=== PATIENT | male | born 1985 | race Two or more races ===

== ENCOUNTER 2017-05-11 09:24 | Emergency (ER) | payer SELFPAY ==
[~2017-05-11] VITALS: Ht 180.3 cm; Wt 86.2 kg
[2017-05-11 10:23] VITALS: BP 151/96
[2017-05-11 10:28] LABS: Basophils # (auto) 0 uL; Basophils % (auto) 0.4 % (0.0-2.0); CONDITION Y; Eosinophils # (auto) 0 uL; Eosinophils % (auto) 0.1 % (0.0-7.0); Hematocrit 45.1 % (41.0-53.0); Hemoglobin 15.6 g/dL (13.5-17.5); Lymphocytes # (auto) 1.4 uL; Lymphocytes % (auto) 14.9 % (10.0-50.0); Mean Corpuscular Hemoglobin 31.6 pg (28.0-32.0); Mean Corpuscular Hgb Conc. 34.5 g/dL (32.0-36.0); Mean Corpuscular Volume 91.6 fL (80.0-100.0); Mean Platelet Volume 7.9 fL (7.4-10.4); Monocytes # (auto) 0.9 uL; Monocytes % (auto) 9.4 % (0.0-12.0); Neutrophils # (auto) 7.2 uL; Neutrophils % (auto) 75.2 % (37.0-80.0); Platelet Count (auto) 273 10^3/uL (140-450); Red Cell Distribution Width 13.1 % (11.6-16.0); White Blood Cell 9.6 10^3/uL (4.4-10.8)
[2017-05-11 10:45] LABS: Albumin 3.9 g/dL (3.4-5.0); Anion Gap 8 (5-15); Aspartate Aminotransferase 24 U/L (15-37); Blood Urea Nitrogen 12 mg/dL (7-18); Calcium 8.9 mg/dL (8.5-10.1); Carbon Dioxide 25 mmol/L (21-32); Chloride 106 mmol/L (98-107); GFR African American 122 mL/min; GFR Non-African American 101 mL/min; Glucose 96 mg/dL (74-106); Potassium 3.7 mmol/L (3.5-5.1); Sodium 139 mmol/L (136-145)
[2017-05-11 10:50] LABS: Alkaline Phosphatase 81 U/L (45-117); Bilirubin, Total 0.6 mg/dL (0.2-1.0); Total Protein 8.2 g/dL (6.4-8.2)
[2017-05-12] MEDS ORDERED: fentaNYL CITRATE 100 MCG/2 ML VL ONE (07:45)
[2017-05-12] MEDS ORDERED: PHENYLEPHRINE HCL 10 MG/ML VL ONE (07:59)
[2017-05-12] MEDS ORDERED: ceFAZolin 1GM VL ONE (08:00)
[2017-05-12] MEDS ORDERED: OXYTOCIN 10 UNIT/ML 10ML VIAL ONE (08:04)
[2017-05-12] MEDS ORDERED: MIDAZOLAM HCL 1MG/1ML-2 ML VIAL ONE (08:05)
[2017-05-12] MEDS ORDERED: DEXAMETHASONE SOD PHOS 10MG/1ML VIAL INJ ONE (08:15)
[2017-05-12] MEDS ORDERED: ONDANSETRON HCL 4 MG/2 ML VIAL ONE (08:15)
[2017-05-12] MEDS ORDERED: METOCLOPRAMIDE HCL 5MG/ml INJ 2ml VIAL ONE (08:15)
[2017-05-12] MEDS ORDERED: diphenhdrAMINE HCL 50 MG/1 ML VL ONE (08:18)
== END 2017-05-11 11:30 | disposition home or self-care (01) ==
LOC: ER 09:24
DX: R07.89 Other chest pain (principal); F41.9 Anxiety disorder, unspecified; F15.10 Other stimulant abuse, uncomplicated
CPT/HCPCS: 36415; 71010; 80053; 84484; 85025; 93005

== ENCOUNTER 2018-01-31 11:34 | Inpatient (IN) | payer SELFPAY ==
[~2018-01-31] VITALS: Ht 177.8 cm; Wt 88.5 kg
[2018-01-31] MEDS ORDERED: ASPirin 81 mg TAB PO ONE (12:00)
[2018-01-31 12:20] LABS: Basophils # (auto) 0 uL; Eosinophils # (auto) 0 uL; Eosinophils % (auto) 0.3 % (0.0-7.0); Hematocrit 49.3 % (41.0-53.0); Lymphocytes # (auto) 1.1 uL; Lymphocytes % (auto) 7.4 % (10.0-50.0); Mean Corpuscular Hemoglobin 31.4 pg (28.0-32.0); Mean Corpuscular Hgb Conc. 34.5 g/dL (32.0-36.0); Mean Corpuscular Volume 91.2 fL (80.0-100.0); Monocytes # (auto) 0.9 uL; Monocytes % (auto) 6.1 % (0.0-12.0); Neutrophils # (auto) 12.4 uL; Neutrophils % (auto) 86.2 % (37.0-80.0); Nucleated Red Blood Cells % 0.1 %; Platelet Count (auto) 233 10^3/uL (140-450); Red Cell Distribution Width 13.6 % (11.8-14.3); White Blood Cell 14.4 10^3/uL (4.4-10.8)
[2018-01-31 12:27] LABS: INR 0.96 (0.9-1.15); Partial Thromboplastin Time 32.1 sec (23.78-33.04); Prothrombin Time 10.3 sec (9.27-12.13)
[2018-01-31 12:35] LABS: Albumin 3.5 g/dL (3.4-5.0); Anion Gap 7 (5-15); Aspartate Aminotransferase 22 U/L (15-37); BUN/Creatinine Ratio 17.6; Blood Urea Nitrogen 18 mg/dL (7-18); Calcium 8.7 mg/dL (8.5-10.1); Carbon Dioxide 27 mmol/L (21-32); Chloride 102 mmol/L (98-107); GFR African American 108 mL/min; GFR Non-African American 89 mL/min; Glucose 126 mg/dL (74-106); Potassium 3.6 mmol/L (3.5-5.1); Sodium 136 mmol/L (136-145)
[2018-01-31 12:41] LABS: Alanine Aminotransferase 43 U/L (16-61); Alkaline Phosphatase 90 U/L (45-117); Bilirubin, Total 0.5 mg/dL (0.2-1.0); Total Protein 7.9 g/dL (6.4-8.2)
[2018-01-31] MEDS ORDERED: SODIUM CHLORIDE 0.9% 1,000 ML IVB ONE (14:18)
[2018-01-31] MEDS ORDERED: KETOROLAC TROMETH 30 MG/ML 1ML VIAL IV ONE (14:30)
[2018-01-31] MEDS ORDERED: ONDANSETRON HCL 4 MG/2 ML VIAL IV ONE (14:30)
[2018-01-31 15:12] LABS: Amylase 44 U/L (25-115); Lipase 68 U/L (73-393)
[2018-01-31 18:14] LABS: Urine Bacteria NONE SEEN /hpf (None Seen); Urine Blood Negative /uL (Negative); Urine Mucus FEW (None Seen); Urine Specific Gravity 1.025 (1.001-1.035); Urine WBC 1 /hpf (0 - 3)
[2018-01-31 18:24] LABS: Alcohol, Urine < 3.0 mg/dL (0-5); Amphetamine Screen, Urine POSITIVE (NEGATIVE); Barbiturate Scree,Urine NEGATIVE (NEGATIVE); Benzodiazephine Screen, Urine NEGATIVE (NEGATIVE); Cannabinoid Screen, Urine NEGATIVE (NEGATIVE); Cocaine Screen, Urine NEGATIVE (NEGATIVE); Opiate Scree,Urine NEGATIVE (NEGATIVE); Phencyclidine Screen, Urine NEGATIVE (NEGATIVE)
[2018-01-31 18:47] VITALS: BP 157/85
[2018-01-31] MEDS ORDERED: SODIUM CHLORIDE 0.9% 1,000 ML IV SCH (18:50)
[2018-01-31] MEDS ORDERED: NITROGLYCERIN 0.4 MG SL TAB SL PRN (19:00)
[2018-01-31] MEDS ORDERED: MORPHINE SULFATE 8mg/ml INJ SDV IV PRN ×3 (19:00)
[2018-01-31] MEDS ORDERED: LORazepam 2MG/ML-1ML VIAL IV PRN (19:00)
[2018-01-31] MEDS ORDERED: PROMETHAZINE HCL 25 MG/ML 1ML IV PRN (19:00)
[2018-01-31] MEDS ORDERED: DEXTROSE (50%) 50ML SYRG IV PRN (19:00)
[2018-01-31] MEDS ORDERED: THIAMINE 100mg/ml INJ (200mg/2ml VIAL) IV ONE (19:00)
[2018-01-31] MEDS ORDERED: PANTOPRAZOLE 40 MG/10 ML VIAL IV ONE (19:00)
[2018-01-31] MEDS ORDERED: cefTRIAXone 1GM/10ml IVPUSH 10 ML IV ONE (19:00)
[2018-01-31] MEDS ORDERED: ENALAPRILAT 1.25 MG/ML-1ML VIAL IV PRN (19:00)
[2018-01-31 19:32] LABS: Free T3 3.56 pg/mL (2.3-4.2); Free T4 (Free Thyroxine) 1.26 ng/dL (0.89-1.76)
[2018-02-01] MEDS ORDERED: metroNIDAZOLE 500MG/100ML 100 ML IV SCH
[2018-02-01] MEDS ORDERED: ENALAPRILAT 1.25 MG/ML-1ML VIAL IV SCH
[2018-02-01] MEDS ORDERED: ACCU-CHEK COMFORT CURVE STRIP VI SCH
[2018-02-01] MEDS ORDERED: cefTRIAXone 1GM/10ml IVPUSH 10 ML IV SCH (09:00)
[2018-02-01] MEDS ORDERED: PANTOPRAZOLE 40 MG/10 ML VIAL IV SCH (10:00)
[2018-02-01] MEDS ORDERED: NITROGLYCERIN 0.2MG/HR TOPICAL PATCH TD SCH (10:00)
[2018-02-01] MEDS ORDERED: THIAMINE 100mg/ml INJ (200mg/2ml VIAL) IV SCH (10:00)
[2018-02-01] MEDS ORDERED: ENOXAPARIN SOD 40 MG/0.4 ML SYRINGE SC SCH (10:00)
== END 2018-01-31 19:58 | disposition left against medical advice (07) | DRG 390 ==
LOC: EDBD 11:34 → ER 11:34 → TELE 11:35
PROVIDERS: ADMIT Internal Medicine; ATTEND Internal Medicine
DX: K56.600 Partial intestinal obstruction, unspecified as to cause (principal); E66.3 Overweight; F10.20 Alcohol dependence, uncomplicated; Z82.49 Family history of ischemic heart disease and other diseases of the circulatory system; F15.90 Other stimulant use, unspecified, uncomplicated; Z68.28 Body mass index [BMI] 28.0-28.9, adult; R07.9 Chest pain, unspecified
CPT/HCPCS: 36415; 71045; 74176; 80053; 80307; 80320; 81001; 82150; 82550; 83036; 83690; 83735; 84439; 84443; 84481; 84484; 85025; 85379; 85610; 85652; 85730; 86141; 93005; 96361; 96374; 96375; C9113; J1885; J2405